=== PATIENT | male | born 1995 | race Caucasian/White ===

== ENCOUNTER 2017-10-12 04:36 | Emergency (ER) | payer SELFPAY ==
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
== END 2017-10-12 06:21 | disposition home or self-care (01) ==
LOC: ER 04:36
DX: G44.319 Acute post-traumatic headache, not intractable (principal); W50.0XXA Accidental hit or strike by another person, initial encounter; Y93.89 Activity, other specified; Y92.9 Unspecified place or not applicable; F17.210 Nicotine dependence, cigarettes, uncomplicated; Z88.0 Allergy status to penicillin
CPT/HCPCS: 70450; 70486; 72125; 76377; 99283

== ENCOUNTER 2017-12-30 10:12 | Emergency (ER) | payer SELFPAY ==
--- NOTE | 2017-12-30 11:35 | ER ---
Nurse's Notes [facility] Name: Ronak Guillaume Age: 22 yrs Sex: Male : 1995 Arrival Date: 12/30/2017 Time: 10:16 Bed 18 Private MD: Manolo Goodwin Diagnosis: Acute pharyngitis Presentation: 12/30 10:24 Presenting complaint: Patient states: sore throat, chills and body aches that began ss last night. Pt reports that his sister that he shares cigarettes with was diagnosed with strep last night. Transition of care: patient was not received from another setting of care. Onset of symptoms was December 29, 2017. Risk Assessment: Do you want to hurt yourself or someone else? Patient reports no desire to harm self or others. Initial Sepsis Screen: Does the patient meet any 2 criteria? HR > 90 bpm. No. Patient's initial sepsis screen is negative. Does the patient have a suspected source of infection? No. Patient's initial sepsis screen is negative. Care prior to arrival: None. 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 - Social history:: Smoking status: Patient uses tobacco products, smokes one-half pack cigarettes per day. - Ebola Screening: : Patient denies exposure to infectious person Patient denies travel to an Ebola-affected area in the 21 days before illness onset. Screenin:30 Abuse screen: Denies threats or abuse. Denies injuries from another. Nutritional ph screening: No deficits noted. Tuberculosis screening: No symptoms or risk factors identified. Fall Risk None identified. Assessment: 10:30 General: Appears in no apparent distress. comfortable, slender, well groomed, Behavior ph is calm, cooperative, appropriate for age, Denies fever. Pain: Complains of pain in throat. Neuro: Level of Consciousness is awake, alert, obeys commands, Oriented to person, place, time, situation. Cardiovascular: Capillary refill < 3 seconds Patient's skin is warm and dry. Respiratory: Airway is patent Respiratory effort is even, unlabored, Breath sounds are clear bilaterally. Denies cough, shortness of breath. GI: No signs and/or symptoms were reported involving the gastrointestinal system. EENT: Throat is reddened bilaterally Reports pain when swallowing. Derm: Skin is intact, is healthy with good turgor, Skin is pink, warm \T\ dry. Musculoskeletal: Circulation, motion, and sensation intact. Range of motion: intact in all extremities. Vital Signs: 10:30 Pulse 96; Resp 15; Temp 99.0(O); Pulse Ox 99% on R/A; Weight 77.11 kg; Height 5 ft. 9 ss in. (175.26 cm); Pain 1/10; 10:30 Body Mass Index 25.10 (77.11 kg, 175.26 cm) ED Course: 10:16 Patient arrived in ED. sb2 10:16 Manolo Goodwin MD is Private Physician. sb2 10:23 Jesus Manuel Denson MD is Attending Physician. 10:25 Triage completed. ss 10:30 Arm band placed on right wrist. ss 10:30 Patient has correct armband on for positive identification. Bed in low position. Call ph light in reach. Side rails up X 1. Pulse ox on. NIBP on. 10:35 Laura Blanton RN is Primary Nurse. 11:39 No provider procedures requiring assistance completed. Patient did not have IV access ss during this emergency room visit. Administered Medications: No medications were administered Outcome: 11:34 Discharge ordered by . 11:39 Discharged to home ambulatory. 11:39 Condition: good 11:39 Discharge instructions given to patient, Patient left prior to signing discharge papers. Instructed on discharge instructions, follow up and referral plans. Demonstrated understanding of instructions, follow-up care. 11:41 Patient left the ED. Signatures: Tawana Shea RN RN Laura Blanton, AMIRA RN Jesus Manuel Denson MD MD Misty Holley sb2
--- NOTE | 2017-12-30 11:35 | EDPHYS ---
Physician Documentation [facility] Name: Ronak Guillaume Age: 22 yrs Sex: Male : 1995 Arrival Date: 12/30/2017 Time: 10:16 Bed 18 Private MD: Manolo Goodwin ED Physician Jesus Manuel Denson HPI: 12/30 11:26 This 22 yrs old Male presents to ER via Ambulatory with complaints of Sore gs Throat. 11:26 The patient presents with sore throat. The patient describes throat pain as burning. gs Onset: The symptoms/episode began/occurred yesterday. Severity of symptoms: At their worst the symptoms were moderate, in the emergency department the symptoms are unchanged. Modifying factors: The symptoms are alleviated by nothing, the symptoms are aggravated by nothing, Patient's oral intake status: good. Associated signs and symptoms: Pertinent negatives fever. The patient has experienced a previous episode. The patient has not recently seen a physician. 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 - Social history:: Smoking status: Patient uses tobacco products, smokes one-half pack cigarettes per day. - Ebola Screening: : Patient denies exposure to infectious person Patient denies travel to an Ebola-affected area in the 21 days before illness onset. ROS: 11:26 All other systems are negative. gs Exam: 11:26 Head/Face: Normocephalic, atraumatic. Eyes: Pupils equal round and reactive to light, gs extra-ocular motions intact. Lids and lashes normal. Conjunctiva and sclera are non-icteric and not injected. Cornea within normal limits. Periorbital areas with no swelling, redness, or edema. Neck: Trachea midline, no thyromegaly or masses palpated, and no cervical lymphadenopathy. Supple, full range of motion without nuchal rigidity, or vertebral point tenderness. No Meningismus. Chest/axilla: Normal chest wall appearance and motion. Nontender with no deformity. No lesions are appreciated. Cardiovascular: Regular rate and rhythm with a normal S1 and S2. No gallops, murmurs, or rubs. Normal PMI, no JVD. No pulse deficits. Respiratory: Lungs have equal breath sounds bilaterally, clear to auscultation and percussion. No rales, rhonchi or wheezes noted. No increased work of breathing, no retractions or nasal flaring. Abdomen/GI: Soft, non-tender, with normal bowel sounds. No distension or tympany. No guarding or rebound. No evidence of tenderness throughout. Back: No spinal tenderness. No costovertebral tenderness. Full range of motion. Skin: Warm, dry with normal turgor. Normal color with no rashes, no lesions, and no evidence of cellulitis. MS/ Extremity: Pulses equal, no cyanosis. Neurovascular intact. Full, normal range of motion. Neuro: Awake and alert, GCS 15, oriented to person, place, time, and situation. Cranial nerves II-XII grossly intact. Motor strength 5/5 in all extremities. Sensory grossly intact. Cerebellar exam normal. Normal gait. 11:26 Constitutional: The patient appears alert, awake. 11:26 ENT: TM's: are normal, Posterior pharynx: erythema, that is moderate. Vital Signs: 10:30 Pulse 96; Resp 15; Temp 99.0(O); Pulse Ox 99% on R/A; Weight 77.11 kg; Height 5 ft. 9 ss in. (175.26 cm); Pain 1/10; 10:30 Body Mass Index 25.10 (77.11 kg, 175.26 cm) ss MDM: 10:38 Patient medically screened. 11:26 Differential diagnosis: pharyngitis, upper respiratory infection, viral syndrome. Data reviewed: vital signs, nurses notes. Response to treatment: the patient's symptoms have mildly improved after treatment. 12/30 10:39 Order name: Strep; Complete Time: 11:35 12/30 11:06 Order name: Throat Culture EDMS Administered Medications: No medications were administered Disposition: 12/30/17 11:34 Discharged to Home. Impression: Acute pharyngitis. - Condition is Stable. - Discharge Instructions: Pharyngitis, [id number]. - Medication Reconciliation Form, Thank You Letter, Antibiotic Education, Prescription Opioid Use form. - Follow up: Private Physician; When: 2 - 3 days; Reason: Re-evaluation by your physician. Signatures: Dispatcher [employer] Tawana Crisotbal RN RN Jesus Manuel Prdao MD MD gs Corrections: (The following items were deleted from the chart) 11:41 11:34 12/30/2017 11:34 Discharged to Home. Impression: Acute pharyngitis. Condition is ss Stable. Forms are Medication Reconciliation Form, Thank You Letter, Antibiotic Education, Prescription Opioid Use. Follow up: Private Physician; When: 2 - 3 days; Reason: Re-evaluation by your physician. gs
== END 2017-12-30 11:41 | disposition home or self-care (01) ==
LOC: ER 10:12
DX: J02.9 Acute pharyngitis, unspecified (principal); F17.210 Nicotine dependence, cigarettes, uncomplicated; Z88.1 Allergy status to other antibiotic agents; Z88.0 Allergy status to penicillin
CPT/HCPCS: 87070; 87081; 99282